=== PATIENT | female | born 1945 | race Caucasian/White ===

== ENCOUNTER → 2016-11-14 | Outpatient (CLI) | payer OTHER, MEDICARE | LOC: FIMAGING 13:16 | PROVIDERS: ATTEND Internal Medicine | DX: N63 Unspecified lump in breast (principal) | CPT/HCPCS: 76641; G0204 ==

== ENCOUNTER → 2016-11-28 | Outpatient (CLI) | payer OTHER, MEDICARE ==
[~2016-11-28] MED LIST: GADOBUTROL 10 ML VIAL IVP ONE
== END ==
LOC: FIMAGING 09:13
PROVIDERS: ATTEND Internal Medicine Hematology & Oncology
DX: C50.012 Malignant neoplasm of nipple and areola, left female breast (principal)
CPT/HCPCS: 0159T; A9585; C8908

== ENCOUNTER 2016-12-04 08:18 | Inpatient (IN) | payer OTHER, MEDICARE ==
[2016-12-04] MEDS ORDERED: LIDOCAINE 1% 2 ML INJ ONE (10:54)
[2016-12-04] MEDS ORDERED: HYDROmorphONE/DILAUDID 2 MG/ML INJ ONE (12:17)
[2016-12-04] MEDS ORDERED: ONDANSETRON 4 MG/2 ML VIAL ONE (12:17)
[2016-12-04] MEDS ORDERED: SUGAMMADEX SODIUM 200 MG/2 ML VIAL IVP ONE (12:17)
[2016-12-04] MEDS ORDERED: ROCURONIUM 50 MG/5 ML VIAL ONE ×2 (12:17→14:46)
[2016-12-04] MEDS ORDERED: DEXAMETHASONE 4 MG/ML VIAL ONE (12:17)
[2016-12-04] MEDS ORDERED: LIDOCAINE 2% 100 MG/5 ML SYR ONE (12:17)
[2016-12-04] MEDS ORDERED: fentaNYL 100 MCG/2 ML INJ ONE ×2 (12:17→16:14)
[2016-12-04] MEDS ORDERED: PROPOFOL 200 MG/20 ML VIAL ONE (12:17)
[2016-12-04] MEDS ORDERED: MIDAZOLAM 2 MG/2 ML VIAL ONE (12:47)
[2016-12-04] MEDS ORDERED: CEFAZOLIN 2 GM/DEXTROSE/100 ML BAG IV ONE (12:48)
[2016-12-04] MEDS ORDERED: LIDOCAINE 1% 5 ML SDV ID PRN (12:52)
[2016-12-04] MEDS ORDERED: LR 1,000 ML IV ONE (12:52)
[2016-12-04] MEDS ORDERED: ceFAZolin 2 GM/DEXTROSE 100 ML IV ONE (13:00)
[2016-12-04] MEDS ORDERED: GENTAMICIN SULFATE 80 MG/2 ML VIAL ONE (13:21)
[2016-12-04] MEDS ORDERED: ceFAZolin 1 GM/5 ML SYR ONE (13:22)
[2016-12-04] MEDS ORDERED: BACITRACIN 50,000 UNITS/10 ML SYR IRR ONE (13:22)
[2016-12-04] MEDS ORDERED: ONDANSETRON 4 MG/2 ML VIAL IVP PRN (14:35)
[2016-12-04] MEDS ORDERED: BUPIVACAINE 0.25% 30 ML SDV ONE (14:39)
--- NOTE | 2016-12-04 14:50 | POSTOPPROG ---
Post Op Note Date of Operation: 12/04/16 Surgeon: Shashi Dial Artificial Limb Maker: edwin morgan Pre-op Diagnosis: l breast cancer Post-op Diagnosis: same Indication: left breast cancer Procedure: left modified radical mastectomy, right total mastectomy Findings: positive axillary nodes Inf/Abcess present in the surg proc area at time of surgery?: No EBL: 50-100
[2016-12-04] MEDS ORDERED: LR 1,000 ML IV SCH (15:00)
--- NOTE | 2016-12-04 15:13 | GOP ---
[f rep st] OPERATIVE REPORT DATE OF OPERATION: 12/04/2016 SURGEON: Shashi Dial MD DISK OPERATOR: Jose Abebe, TONYA, LSA PREOPERATIVE DIAGNOSIS: Left breast cancer. POSTOPERATIVE DIAGNOSIS: Left breast cancer. PROCEDURE PERFORMED: Right total mastectomy, left modified radical mastectomy. FINDINGS: INDICATIONS: A 71-year-old female with sizable left breast cancer and ultrasound showing clinically suspicious nodes in the left axilla. DESCRIPTION OF PROCEDURE: General anesthetic, the chest scrubbed with Betadine, draped in the usual sterile fashion. Starting on the right side, a skin ellipse was created around the nipple and areo lar complex and then skin flaps raised above the breast parenchyma, cephalad to the full extent of t he breast tissue medially, inferiorly and eventually laterally. The breast was then removed off the pectoralis major muscle, including the fascia, the portion of the specimen. This was done from med ial to lateral, and eventually the breast amputated completely and handed off the field oriented wit h a suture. Minor bleeding points were controlled with cautery. No axillary dissection was perform ed. Attention was paid to the patient's side with cancer, which was the left, and again a skin ellipse c reated and the skin flaps raised somewhat on the other side. After the breast was marked and handed off the field, the gamma probe was used but other than background scatter, there was no single obvi ous positive sentinel node. Palpation of the axilla, however, revealed matted 2 cm nodes almost cer tainly to be positive; therefore, it was elected to perform an axillary node dissection. The clavip ectoral fascia was incised such that the axillary vein could be identified. The underside of the ax illary vein was cleared until the thoracodorsal neurovascular bundle was identified. This was disse cted inferiorly, freeing up the entire nerve from the specimen. Dissection then proceeded medially along the bottom of the axillary vein until the long thoracic nerve was encountered. This was freed up and maintained medially. All lymph node tissue between these structures was then carefully diss ected inferiorly and eventually submitted as axillary contents. Palpation under the pec minor showe d several probably positive nodes. Careful retraction eventually allowed dissection of several dawson tional nodes which were removed. These were labeled highest axillary nodes and submitted in a separ ate container. Minor bleeding points were controlled with cautery. Both nerves were functioning at the end of the case. The wounds were irrigated out, packed with gauze, and the case turned over to Dr. Deshaun Bhatt for breast reconstruction. /[id number]/MODL
[2016-12-04] MEDS ORDERED: HYDROmorphONE/DILAUDID 1 MG/ML SYR ONE ×2 (16:49→17:30)
[2016-12-04] MEDS: HYDROmorphONE/DILAUDID 1 MG/ML SYR IVP PRN ×3 (18:48→21:41)
[2016-12-04] MEDS ORDERED: NALOXONE HCL 0.4 MG/ML INJ IVP PRN (22:00)
[2016-12-04] MEDS: ceFAZolin 2 GM/DEXTROSE 100 ML IV SCH (22:52)
[2016-12-04] MEDS: HYDROmorphONE/DILAUDID 6 MG/30 ML PCA IV PRN (22:53)
[2016-12-04] MEDS: HYDROCODONE/APAP 5/325 TAB PO PRN (23:06)
[2016-12-04] MEDS ORDERED: LORazepam 1 MG TAB PO PRN (23:59)
[2016-12-05] MEDS: ceFAZolin 2 GM/DEXTROSE 100 ML IV SCH (06:00)
--- NOTE | 2016-12-05 06:10 | GOP ---
[f rep st] OPERATIVE REPORT DATE OF OPERATION: 12/04/2016 SURGEON: Xochitl Bhatt Jr., MD BAR FINISH OPERATOR: Kj Murray SUSHI CHEF by surgeon request (skilled surgical physician assistant was necessary due t o the technical complexity of the case and a desire to minimize patient anesthesia time). ANESTHESIA: The patient had general inhalational anesthesia. ANESTHESIOLOGIST: Rohit Mack MD. PREOPERATIVE DIAGNOSIS: Left breast cancer. POSTOPERATIVE DIAGNOSIS: Left breast cancer. PROCEDURE PERFORMED: Immediate bilateral breast reconstruction utilizing tissue expanders and human dermal allograft. FINDINGS: ESTIMATED BLOOD LOSS: 10 cc. INDICATIONS: The patient is a 71-year-old white female referred from Dr. Shashi Dial to consider breast reconstruction following a planned bilateral mastectomy for a left breast cancer diagnosis. She was deemed an excellent candidate to have tissue expanders placed at the time of mastectomy, an d she was brought to the operating room in conjunction with Dr. Dial for that purpose. DESCRIPTION OF PROCEDURE: After the risks and benefits of the procedure were explained to the patie nt, formal operative consent was obtained. She was taken to the operating room, and uncomplicated b ilateral modified radical mastectomy with left axillary lymph node dissection was performed by Dr. Chikis jasso. Reconstruction began by re-draping the patient with fresh towels, fresh instrumentation. Cautery and suction were utilized. I began by irrigating both pockets and obtaining meticulous hem ostasis. I then developed a pocket beneath the pectoralis major muscle, serratus anterior muscle, a nd pectoralis minor muscles. The inferior origin of the pectoralis major muscle was released to all ow correct positioning of the tissue hull and deck remover. Once the pockets were then symmetrically dissected, an Platypus Craftan style 133FX-12-T tissue hull and deck remover was thoroughly tested, evacuated of air and filled with 200 cc of injectable saline. It was then sutured down on the chest wall in the correct anatomic po sition utilizing 2-0 PDS suture. An AlloDerm medium contour perforated acellular dermis graft was t riple rinsed in normal saline, soaked in triple antibiotic saline and then used to reconstruct the i nferior pole of both breasts. The sutures then were placed using running 2-0 Monocryl suture. A 15 round drain was placed along both inferior gutters and into the left axillary dissection site. The pocket was irrigated again with triple antibiotic saline. Meticulous hemostasis was assured a taisha l time. Skin edges were examined and had good capillary refill and bleeding from the skin edges. T nata mastectomy incisions were closed using everting deep dermal 3-0 Monocryl suture and further kory ed using surgical rock. An additional 120 cc of injectable saline was placed transcutaneously in to the tissue expanders for a final fill volume of 320 cc. She had 15 cc of 0.25% plain Marcaine in stilled into each drain. She had bacitracin, Xeroform and silver-impregnated dressings placed over the mastectomy incisions with a lightly compressive bra. She was extubated in the operating room, kateryna giang to the recovery room, and awakened in stable condition. EXPANDERS: Allergan 133FX-12-T, 450 cc devices filled to 320 cc bilaterally. COMPLICATIONS: No complications. DRAINS: 3 RADHA drains placed. /[id number]/MODL
[2016-12-05] MEDS: HYDROCODONE/APAP 5/325 TAB PO PRN (07:16)
--- NOTE | 2016-12-05 07:39 | SOAPPROG ---
SOAP Progress Note Assessment/Plan: Assessment: Plan: Subjective: vss pt had difficult night secondary to pain i have reordered her chronic daily ox 10 mg, and ativan. also has a dilaudid pricing manager - will try to wean off wwbut will need some breakthorugh coverage i imagine. has not been out of bed. acces: pain, anxiety, lack of mobility. not likely to go home today. Objective: Vital Signs Temp Pulse Resp BP Pulse Ox 36.4 C 89 18 126/58 H 99 12/05/16 04:34 12/05/16 06:00 12/05/16 04:34 12/05/16 06:00 12/05/16 06:00 12/04/16 12/05/16 12/06/16 05:59 05:59 05:59 Intake Total 1500 Output Total 3615 Balance -2115 ICD10 Worksheet Patient Problems: Problems Problem Status Onset Breast cancer Acute Breast cancer Acute - ICD10 Problem Qualifiers (1) Breast cancer Qualifiers: Breast location: B Patient sex: P Laterality: L (2) Breast cancer Qualifiers: Breast location: B Patient sex: P Laterality: L
[2016-12-05] MEDS: ENOXAPARIN 30 MG/0.3 ML SYR SC SCH (09:52)
[2016-12-05] MEDS ORDERED: LORazepam 1 MG TAB PO SCH (12:00)
[2016-12-05] MEDS: oxyCODONE IR 5 MG TAB PO SCH ×2 (12:15→18:05)
[2016-12-05] MEDS: HYDROmorphONE/DILAUDID 6 MG/30 ML PCA IV PRN (16:01)
[2016-12-05] MEDS: LORazepam 1 MG TAB PO SCH ×2 (16:28→21:10)
[2016-12-06] MEDS: oxyCODONE IR 5 MG TAB PO SCH ×4 (00:06→18:43)
[2016-12-06] MEDS: LORazepam 1 MG TAB PO SCH ×4 (03:23→20:46)
[2016-12-06] MEDS: HYDROmorphONE/DILAUDID 6 MG/30 ML PCA IV PRN ×2 (04:45→20:58)
--- NOTE | 2016-12-06 07:08 | SOAPPROG ---
SOAP Progress Note Assessment/Plan: Assessment: Plan: Subjective: feels beter thn yesterday, but still in considerable pain. using a walker because of unsteady gait. does not feel comfortable going home today. will have ot/pt see pt. Objective: Vital Signs Temp Pulse Resp BP Pulse Ox 36.4 C 87 16 106/72 91 L 12/05/16 20:08 12/06/16 06:00 12/05/16 20:08 12/06/16 06:00 12/06/16 06:00 12/05/16 12/06/16 12/07/16 05:59 05:59 05:59 Intake Total 1500 2138.8 Output Total 3615 810 60 Balance -2115 1328.8 -60 ICD10 Worksheet Patient Problems: Problems Problem Status Onset Breast cancer Acute Breast cancer Acute - ICD10 Problem Qualifiers (1) Breast cancer Qualifiers: Breast location: B Patient sex: P Laterality: L (2) Breast cancer Qualifiers: Breast location: B Patient sex: P Laterality: L
[2016-12-06] MEDS: ENOXAPARIN 30 MG/0.3 ML SYR SC SCH (09:19)
[2016-12-06] MEDS ORDERED: PNEUMOC 13-VAL CONJ-DIP CRM/PF 0.5 ML SYR IM ONE (12:32)
[2016-12-07] MEDS: oxyCODONE IR 5 MG TAB PO SCH ×5 (00:03→23:39)
[2016-12-07] MEDS: LORazepam 1 MG TAB PO SCH ×4 (03:07→20:26)
[2016-12-07] MEDS: ENOXAPARIN 30 MG/0.3 ML SYR SC SCH (10:02)
[2016-12-07] MEDS ORDERED: SENNOSIDES 1 TAB PO PRN (12:43)
[2016-12-07] MEDS: POLYETHYLENE GLYCOL 3350 17 GM PKT PO PRN (13:28)
[2016-12-07 16:16] VITALS: RESP 16
--- NOTE | 2016-12-07 19:51 | PDIAF ---
- Diagnosis Diagnosis: breast cancer Code Status: Full Code - Medication Management Discharge Medications: Medications to Continue on Transfer DULoxetine [Cymbalta 60 MG (*)] 60 mg PO HS 03/21/14 [Last Taken 12/03/16] oxyCODONE IR [Oxycodone Ir (*)] 10 mg PO Q6HRS PRN 03/21/14 [Last Taken 06:00] Cephalexin [Keflex (*)] 250 mg PO 5XD 11/30/16 [Last Taken 12/03/16 21:00] Dicyclomine [Bentyl 20 MG (*)] 20 mg PO BID PRN 11/30/16 [Last Taken Unknown] Eszopiclone [Lunesta] 3 mg PO HS 11/30/16 [Last Taken 12/03/16] LORazepam [Ativan (*)] 2 mg PO TID PRN 11/30/16 [Last Taken 12/04/16 06:00] Ondansetron Odt [Zofran Odt 4 mg (*)] 4 mg PO DAILY PRN 11/30/16 [Last Taken Unknown] lamoTRIgine [LamICTAL] 25 - 50 mg PO TID PRN 11/30/16 [Last Taken 12/04/16 06: 00 25mg] Cyanocobalamin [Vitamin B12 (*)] 100 mcg PO DAILY 12/04/16 [Last Taken Unknown] Herbals/Supplements -Info Only 1 ea PO DAILY 12/04/16 [Last Taken Unknown] celeCOXIB [CeleBREX] 100 mg PO BID 12/04/16 [Last Taken Unknown] Discharge Medications: Refer to the Discharge Home Medication list for PRN reason. - Orders Services needed: Registered Nurse, Physical Therapy, Occupational Therapy - Follow Up Care Current Providers and Referrals: Ayleen Wong MD [Primary Care Provider] -
--- NOTE | 2016-12-07 19:52 | SOAPPROG ---
SOAP Progress Note Assessment/Plan: Assessment: Plan: Subjective: vss,af, skin intact. jolene's present. plan is to go to [facility] tomorrow for continued rehab. follow up with dr douglas next week, dr jimenez in 2 weeks. Objective: Vital Signs Temp Pulse Resp BP Pulse Ox 36.9 C 85 16 155/97 H 94 12/07/16 16:13 12/07/16 16:13 12/07/16 16:13 12/07/16 16:13 12/07/16 16:13 12/06/16 12/07/16 12/08/16 05:59 05:59 05:59 Intake Total 2138.8 2185.5 503.2 Output Total 810 1545 325 Balance 1328.8 640.5 178.2 ICD10 Worksheet Patient Problems: Problems Problem Status Onset Breast cancer Acute Breast cancer Acute - ICD10 Problem Qualifiers (1) Breast cancer Qualifiers: Breast location: B Patient sex: P Laterality: L (2) Breast cancer Qualifiers: Breast location: B Patient sex: P Laterality: L
[2016-12-07] MEDS: oxyCODONE IR 5 MG TAB PO PRN (20:26)
--- NOTE | 2016-12-08 00:28 | GDS ---
[f rep st] DISCHARGE SUMMARY Patient was admitted with known left breast cancer. HOSPITAL COURSE: Patient underwent right total mastectomy, left modified radical mastectomy with co mplete axillary dissection. She then had first-stage breast reconstruction by Dr. Deshaun Bhatt. At the time of discharge, pathology has still not been read. The patient had a slow recovery and has difficulty getting around. Not ambulatory well yet and inca pable of managing her own Juan Carlos-Hoang drains. She is being discharged to rehab at [facility]. FINAL DIAGNOSIS: Left breast cancer. OPERATIONS: As above. [facility] FOLLOWUP: With both Dr. Bhatt and Dr. Dial and eventually Medical Oncology. /[id number]/MODL
[2016-12-08] MEDS: LORazepam 1 MG TAB PO SCH ×3 (03:28→13:03)
[2016-12-08 03:40] VITALS: O2SAT 96
[2016-12-08] MEDS: oxyCODONE IR 5 MG TAB PO SCH ×2 (06:04→12:13)
[2016-12-08] MEDS: oxyCODONE IR 5 MG TAB PO PRN (09:22)
[2016-12-08] MEDS: ENOXAPARIN 30 MG/0.3 ML SYR SC SCH (09:23)
[2016-12-08 09:46] VITALS: BP 157/61; PULSE 78; TEMP 97.8
--- NOTE | 2016-12-08 11:19 | SOAPPROG ---
SOAP Progress Note Assessment/Plan: Assessment/Plan: - 71yo F s/p trixie mastectomies c recon - Doing well, JPs serosang, pain controlled. Discharge set for today to SNF. Follow up established. No concerns. 12/08/16 11:18 Subjective: Doing well, anticipating discharge Objective: Vital Signs Temp Pulse Resp BP Pulse Ox 36.6 C 78 16 157/61 H 96 12/08/16 09:46 12/08/16 09:46 12/08/16 09:46 12/08/16 09:46 12/08/16 09:46 12/07/16 12/08/16 12/09/16 05:59 05:59 05:59 Intake Total 2185.5 903.2 300 Output Total 1545 1485 550 Balance 640.5 -581.8 -250 ICD10 Worksheet Patient Problems: Problems Problem Status Onset Breast cancer Acute Breast cancer Acute
[2016-12-08] MEDS: POLYETHYLENE GLYCOL 3350 17 GM PKT PO PRN (13:20)
== END 2016-12-08 14:50 | DRG 580 ==
LOC: F3E 09:56 → INTOOBSV 09:56 → F1N 18:38 → OBSVTOIN 12-05 14:46
PROVIDERS: ADMIT Surgery; ATTEND Surgery
PROC: 07B60ZX Excision of Left Axillary Lymphatic, Open Approach, Diagnostic (ICD-10-PCS; principal; 2016-12-04 12:30)
PROC: 0HTV0ZZ Resection of Bilateral Breast, Open Approach (ICD-10-PCS; principal; 2016-12-04 12:30)
PROC: 0HHV0NZ Insertion of Tissue Expander into Bilateral Breast, Open Approach (ICD-10-PCS; principal; 2016-12-04 12:30)
DX: C50.912 Malignant neoplasm of unspecified site of left female breast (principal); C77.3 Secondary and unspecified malignant neoplasm of axilla and upper limb lymph nodes
CPT/HCPCS: 97116-GP; 97162-GP; 97165-GO; 97530-GP; 97535-GO; A9520; G0009; G8978-GP-CK; G8979-GP-CI; G8987-GO-CK; G8988-GO-CI; J0690; J1100; J1170; J1650; J2001; J2250; J2405; J2704; J3010; Q4116

== ENCOUNTER 2016-12-17 10:54 | Emergency (ER) | payer OTHER, MEDICARE ==
[2016-12-17 11:02] VITALS: TEMP 97.9
--- NOTE | 2016-12-17 11:37 | EDPHY ---
H & P Time Seen by Provider: 12/17/16 11:02 HPI/ROS: Chief complaint. Left arm swelling HPI. Patient is 71-year-old female with breast cancer. She had a bilateral mastectomy 2 weeks ago. She had left lymph node dissection. Breast cancer was in the left. Today she awoke with pain and swelling to the left upper extremity. Denies trauma. She still has bilateral breast drains in place and there still draining. Denies fever, chest discomfort, trouble breathing. No similar symptoms of arm swelling previously ROS Constitutional. no fever/chills, no weakness Eyes. no problems with vision ENT. no sore throat, no nasal drainage Cardiovascular. no chest pain Respiratory. no shortness of breath, no cough Abdominal. no abdominal pain, no nausea/vomiting, no diarrhea . no problems urinating MS. Left arm swelling Skin. no rash Lymph. no swollen glands Neuro. no headache, no dizziness, no difficulty walking or with speech Past Medical/Surgical History: Past medical history is significant for breast cancer with bilateral mastectomy , anxiety, mood disorder, insomnia Social History: Single, nonsmoker, no alcohol Smoking Status: Never smoked Physical Exam: General Appearance: Alert well-developed female mild distress vital signs stable Eyes: Pupils equal and round no pallor or injection. ENT, Mouth: Mucous membranes are moist. Respiratory: There are no retractions, lungs are clear to auscultation. Cardiovascular: Regular rate and rhythm. Gastrointestinal: Abdomen is soft and nontender, no masses, bowel sounds normal. Neurological: Awake and alert, sensory and motor exams grossly normal. Skin: Warm and dry, no rashes. Musculoskeletal: Neck is supple nontender. Extremities the left upper extremity is swollen. She has good range of motion. Radial pulses full and symmetrical with other pulse. No evidence for cellulitis Psychiatric: Patient is oriented X 3, there is no agitation. Constitutional: Initial Vital Signs Temperature (C) 36.6 C 12/17/16 10:57 Heart Rate 85 12/17/16 10:57 Respiratory Rate 14 12/17/16 10:57 Blood Pressure 169/80 H 12/17/16 10:57 O2 Sat (%) 96 12/17/16 10:57 O2 Delivery Mode Room Air Allergies/Adverse Reactions: No Known Allergies Allergy (Verified 10/25/14 15:46) Home Medications: Medication Instructions Recorded DULoxetine [Cymbalta 60 MG (*)] 60 mg PO HS 03/21/14 oxyCODONE IR [Oxycodone Ir (*)] 10 mg PO Q6HRS PRN 03/21/14 Cephalexin [Keflex (*)] 250 mg PO 5XD 11/30/16 Dicyclomine [Bentyl 20 MG (*)] 20 mg PO BID PRN 11/30/16 Eszopiclone [Lunesta] 3 mg PO HS 11/30/16 LORazepam [Ativan (*)] 2 mg PO TID PRN 11/30/16 Ondansetron Odt [Zofran Odt 4 mg 4 mg PO DAILY PRN 11/30/16 (*)] lamoTRIgine [LamICTAL] 25 - 50 mg PO TID PRN 11/30/16 Cyanocobalamin [Vitamin B12 (*)] 100 mcg PO DAILY 12/04/16 Herbals/Supplements -Info Only 1 ea PO DAILY 12/04/16 celeCOXIB [CeleBREX] 100 mg PO BID 12/04/16 Medical Decision Making - Diagnostics Imaging Results: Imaging Impressions Extremity Venous Study 12/17/16 12:01 Impression: Negative. No deep venous thrombosis. Findings discussed with Emergency Department physician, LATASHA ALTAMIRANO at 12/17 13:18. Ultrasound left upper extremity reviewed by me and discussed with Dr. Gonzales shows no evidence for DVT Procedures: IV normal saline ED Course/Re-evaluation: Re-evaluation 1:25 p.m.. Patient is stable. She the patient, her sister, and I discussed imaging lab study results, treatment plan including criteria for return importance of follow-up further evaluation. They expressed understanding and agreement Differential Diagnosis: Certainly I considered DVT. The patient does not have a DVT. I believe this is likely lymph accumulation from her left mastectomy and lymph node biopsy. No evidence for infection. - Data Points Laboratory Results: Laboratory Results 12/17/16 12:15 12/17/16 12:15 12/17/16 12/17/16 12/17/16 12:15 12:15 12:15 WBC 7.61 10^3/uL 10^3/uL (3.80-9.50) RBC 3.69 10^6/uL L 10^6/uL (4.18-5.33) Hgb 11.0 g/dL L g/dL (12.6-16.3) Hct 34.7 % L % (38.0-47.0) MCV 94.0 fL fL (81.5-99.8) MCH 29.8 pg pg (27.9-34.1) MCHC 31.7 g/dL L g/dL (32.4-36.7) RDW 12.9 % % (11.5-15.2) Plt Count 233 10^3/uL 10^3/uL (150-400) MPV 9.8 fL fL (8.7-11.7) Neut % (Auto) 71.9 % % (39.3-74.2) Lymph % (Auto) 15.2 % % (15.0-45.0) [place] % (Auto) 9.1 % % (4.5-13.0) Eos % (Auto) 2.9 % % (0.6-7.6) Baso % (Auto) 0.5 % % (0.3-1.7) Nucleat RBC Rel Count 0.0 % % (0.0-0.2) Absolute Neuts (auto) 5.47 10^3/uL 10^3/uL (1.70-6.50) Absolute Lymphs (auto) 1.16 10^3/uL 10^3/uL (1.00-3.00) Absolute Monos (auto) 0.69 10^3/uL 10^3/uL (0.30-0.80) Absolute Eos (auto) 0.22 10^3/uL 10^3/uL (0.03-0.40) Absolute Basos (auto) 0.04 10^3/uL 10^3/uL (0.02-0.10) Absolute Nucleated RBC 0.00 10^3/uL 10^3/uL (0-0.01) Immature Gran % 0.4 % % (0.0-1.1) Immature Gran # 0.03 10^3/uL 10^3/uL (0.00-0.10) PT 12.4 SEC SEC (12.0-15.0) INR 0.93 (0.83-1.16) APTT 22.6 SEC L SEC (23.0-38.0) D-Dimer 1.69 ug/mLFEU H ug/mLFEU (0.00-0.50) Sodium 139 mEq/L mEq/L (134-144) Potassium 4.3 mEq/L mEq/L (3.5-5.2) Chloride 104 mEq/L mEq/L (97-110) Carbon Dioxide 27 mEq/l mEq/l (22-31) Anion Gap 8 mEq/L mEq/L (8-16) BUN 14 mg/dL mg/dL (7-23) Creatinine 0.6 mg/dL mg/dL (0.6-1.0) Estimated GFR > 60 Glucose 90 mg/dL mg/dL (70-100) Calcium 9.1 mg/dL mg/dL (8.5-10.4) Departure - Departure Disposition: Home, Routine, Self-Care Clinical Impression: Left arm swelling post mastectomy Condition: Good Instructions: Lymphedema (ED) Additional Instructions: Elevated arm as much as possible. Return for worsening pain, fever, chest discomfort. We considered this may be blood clot in your arm and the ultrasound is normal. I believe this is lymph accumulation following your recent surgery Keep follow-up appointments with Dr. Bhatt and Yojana Referrals: CLIFTON KAY [Retired Resigned] - As per Instructions Diamond Bhatt JR, MD [Medical Doctor] - As per Instructions Shashi Dial MD [Medical Doctor] - As per Instructions
[2016-12-17 12:25] LABS: % IMMATURE GRANULYOCYTES 0.4 % (0.0-1.1); ABSOLUTE IMMATURE GRANULOCYTES 0.03 10^3/uL (0.00-0.10); ADD DIFF? NO; ADD MORPH? NO; ADD SCAN? NO; ATYPICAL LYMPHOCYTE FLAG 0 (0-99); FRAGMENT RBC FLAG 0 (0-99); HEMATOCRIT 34.7 % (38.0-47.0); LEFT SHIFT FLG 0 (0-99); LIPEMIA HEMOLYSIS FLAG 80 (0-99); MEAN CELL HEMOGLOBIN 29.8 pg (27.9-34.1); MEAN CELL HEMOGLOBIN CONCENTR. 31.7 g/dL (32.4-36.7); MEAN PLATELET VOLUME 9.8 fL (8.7-11.7); PLATELET CLUMPS FLAG 30 (0-99); PLATELET COUNT 233 10^3/uL (150-400); RED BLOOD CELL COUNT 3.69 10^6/uL (4.18-5.33); RED CELL DISTRIBUTION WIDTH 12.9 % (11.5-15.2)
[2016-12-17 12:34] LABS: APTT 22.6 SEC (23.0-38.0); INR 0.93 (0.83-1.16); PROTIME(PATIENT) 12.4 SEC (12.0-15.0)
[2016-12-17 12:43] LABS: ANION GAP 8 mEq/L (8-16); CALCIUM 9.1 mg/dL (8.5-10.4); CARBON DIOXIDE 27 mEq/l (22-31); CHLORIDE 104 mEq/L (97-110); CREATININE 0.6 mg/dL (0.6-1.0); GLOMERULAR FILTRATION RATE > 60; GLUCOSE 90 mg/dL (70-100); POTASSIUM 4.3 mEq/L (3.5-5.2); SODIUM 139 mEq/L (134-144)
[2016-12-17 14:04] VITALS: BP 153/82; PULSE 89; RESP 16; O2SAT 94
== END 2016-12-17 14:05 | disposition home or self-care (01) ==
LOC: EDUNIT#
DX: M79.89 Other specified soft tissue disorders (principal); Z85.3 Personal history of malignant neoplasm of breast; Z90.13 Acquired absence of bilateral breasts and nipples

== ENCOUNTER 2017-01-08 15:42 | Emergency (ER) | payer OTHER, MEDICARE ==
--- NOTE | 2017-01-08 16:57 | EDPHY ---
H & P Stated Complaint: bilat mastectomy/expanders l breast 12/31 now with redness / swelling l shannan Time Seen by Provider: 01/08/17 16:56 HPI/ROS: CHIEF COMPLAINT: Postoperative erythema left mastectomy site HISTORY OF PRESENT ILLNESS: The patient presents to the ED for evaluation of mild postoperative erythema in her left mastectomy site. The patient underwent mastectomy and tissue controls design engineer placement approximately 1 month ago. This was complicated by a postoperative infection requiring washout a replacement of the tissue controls design engineer on the left breast. The patient has been on oral Bactrim. She presents to the ED today with complaints of slight increased redness to the left breast. She denies fever today. She reportedly had a fever yesterday of 100.2. She denies any complaints of dyspnea or additional medical concerns. REVIEW OF SYSTEMS: A comprehensive 10 point review of systems is otherwise negative aside from elements mentioned in the history of present illness. Source: Patient - Personal History Current Tetanus/Diphtheria Vaccine: Yes Tetanus Vaccine Date: < 10 years - Medical/Surgical History Hx Asthma: No Hx Chronic Respiratory Disease: No Hx Diabetes: No Hx Cardiac Disease: No Hx Renal Disease: No Hx Cirrhosis: No Hx Alcoholism: No Hx HIV/AIDS: No Hx Splenectomy or Spleen Trauma: No Other PMH: bi-lat breast CA w/ lym,ph removal 2 wks ago. anxiety. mood disorder. insomnia - Social History Smoking Status: Never smoked - Physical Exam Exam: General Appearance: Alert, no distress Eyes: Pupils equal and round no pallor or injection ENT, Mouth: Mucous membranes moist Respiratory: There are no retractions, lungs are clear to auscultation Cardiovascular: Regular rate and rhythm Gastrointestinal: Abdomen is soft and nontender, no masses, bowel sounds normal Neurological: Alert and oriented x4, 5/5 strength noted all 4 extremities Skin: Mild erythema overlying soft tissues of left breast, no fluctuance Musculoskeletal: Neck is supple nontender Extremities: symmetrical, full range of motion Constitutional: Initial Vital Signs Temperature (C) 36.8 C 01/08/17 15:54 Heart Rate 70 01/08/17 15:54 Respiratory Rate 18 01/08/17 15:54 Blood Pressure 127/67 H 01/08/17 15:54 O2 Sat (%) 94 01/08/17 15:54 O2 Delivery Mode Room Air Allergies/Adverse Reactions: No Known Allergies Allergy (Verified 01/08/17 15:50) Home Medications: Medication Instructions Recorded DULoxetine [Cymbalta 60 MG (*)] 60 mg PO HS 03/21/14 oxyCODONE IR [Oxycodone Ir (*)] 10 mg PO Q6HRS PRN 03/21/14 Dicyclomine [Bentyl 20 MG (*)] 20 mg PO BID PRN 11/30/16 Eszopiclone [Lunesta] 3 mg PO HS 11/30/16 Ondansetron Odt [Zofran Odt 4 mg 4 mg PO DAILY PRN 11/30/16 (*)] lamoTRIgine [LamICTAL] 25 - 50 mg PO TID PRN 11/30/16 Cyanocobalamin [Vitamin B12 (*)] 100 mcg PO DAILY 12/04/16 Herbals/Supplements -Info Only 1 ea PO DAILY 12/04/16 Bactrim DS 01/08/17 Hydrochlorothiazide 01/08/17 Opana 01/08/17 Medical Decision Making ED Course/Re-evaluation: The patient presents to the ED with a mild postoperative cellulitis. She has no fever, no leukocytosis or abnormal vital signs. The patient is currently on an appropriate antibiotic. The patient has a follow-up appointment with her plastic surgeon on . At this point time I do feel the patient can continue oral antibiotic therapy for management of her condition. She has no evidence of sepsis, severe sepsis or septic shock. The patient will be discharged home with instructions to return to the ED for worsening symptoms including high fever, redness, pain, swelling or lightheadedness. Differential Diagnosis: Differential diagnosis considered includes cellulitis, abscess, necrotizing fasciitis, sepsis - Data Points Laboratory Results: Laboratory Results 01/08/17 17:25 01/08/17 17:25 WBC 5.59 10^3/uL 10^3/uL (3.80-9.50) RBC 3.67 10^6/uL L 10^6/uL (4.18-5.33) Hgb 10.7 g/dL L g/dL (12.6-16.3) Hct 33.1 % L % (38.0-47.0) MCV 90.2 fL fL (81.5-99.8) MCH 29.2 pg pg (27.9-34.1) MCHC 32.3 g/dL L g/dL (32.4-36.7) RDW 13.0 % % (11.5-15.2) Plt Count 206 10^3/uL 10^3/uL (150-400) MPV 10.0 fL fL (8.7-11.7) Neut % (Auto) 62.3 % % (39.3-74.2) Lymph % (Auto) 20.9 % % (15.0-45.0) [place] % (Auto) 14.3 % H % (4.5-13.0) Eos % (Auto) 1.8 % % (0.6-7.6) Baso % (Auto) 0.5 % % (0.3-1.7) Nucleat RBC Rel Count 0.0 % % (0.0-0.2) Absolute Neuts (auto) 3.48 10^3/uL 10^3/uL (1.70-6.50) Absolute Lymphs (auto) 1.17 10^3/uL 10^3/uL (1.00-3.00) Absolute Monos (auto) 0.80 10^3/uL 10^3/uL (0.30-0.80) Absolute Eos (auto) 0.10 10^3/uL 10^3/uL (0.03-0.40) Absolute Basos (auto) 0.03 10^3/uL 10^3/uL (0.02-0.10) Absolute Nucleated RBC 0.00 10^3/uL 10^3/uL (0-0.01) Immature Gran % 0.2 % % (0.0-1.1) Immature Gran # 0.01 10^3/uL 10^3/uL (0.00-0.10) Departure - Departure Disposition: Home, Routine, Self-Care Clinical Impression: Postoperative cellulitis of surgical wound Condition: Good Instructions: Cellulitis (ED) Additional Instructions: 1. Continue antibiotics as directed. 2. Please return to the ED for increasing pain, high fever, redness, swelling or other concerns. 3. Please follow up with Dr. Bhatt in the next 1-2 days for a wound check. Referrals: Diamond Bhatt JR, MD [Medical Doctor] - As per Instructions
[2017-01-08 17:35] LABS: % IMMATURE GRANULYOCYTES 0.2 % (0.0-1.1); ABSOLUTE IMMATURE GRANULOCYTES 0.01 10^3/uL (0.00-0.10); ADD DIFF? NO; ADD MORPH? NO; ADD SCAN? NO; ATYPICAL LYMPHOCYTE FLAG 0 (0-99); FRAGMENT RBC FLAG 0 (0-99); HEMATOCRIT 33.1 % (38.0-47.0); HEMOGLOBIN 10.7 g/dL (12.6-16.3); LEFT SHIFT FLG 0 (0-99); LIPEMIA HEMOLYSIS FLAG 80 (0-99); MEAN CELL HEMOGLOBIN 29.2 pg (27.9-34.1); MEAN CELL HEMOGLOBIN CONCENTR. 32.3 g/dL (32.4-36.7); MEAN CELL VOLUME 90.2 fL (81.5-99.8); PLATELET CLUMPS FLAG 0 (0-99); PLATELET COUNT 206 10^3/uL (150-400); RED BLOOD CELL COUNT 3.67 10^6/uL (4.18-5.33)
[2017-01-08 18:00] VITALS: BP 112/57; PULSE 91; RESP 16; TEMP 98.8; O2SAT 90
== END 2017-01-08 18:04 | disposition home or self-care (01) ==
DX: T81.4XXA Infection following a procedure, initial encounter (principal); Z85.3 Personal history of malignant neoplasm of breast; Y82.8 Other medical devices associated with adverse incidents

== ENCOUNTER → 2017-03-14 | Outpatient (CLI) | payer OTHER, MEDICARE | LOC: FIMAGING 14:46 | PROVIDERS: ATTEND Radiology Radiation Oncology | DX: M79.89 Other specified soft tissue disorders (principal); Z85.9 Personal history of malignant neoplasm, unspecified ==

== ENCOUNTER → 2017-07-24 | Outpatient (CLI) | payer OTHER, MEDICARE | LOC: FIMAGING 13:14 | PROVIDERS: ATTEND Internal Medicine Hematology & Oncology | DX: Z13.820 Encounter for screening for osteoporosis (principal); Z85.3 Personal history of malignant neoplasm of breast ==